=== PATIENT | male | born 1995 | race Two or more races ===

== ENCOUNTER 2017-02-19 13:51 | Outpatient (RCR) ==
--- NOTE | 2017-02-20 15:28 | RS.OPPTEV2 ---
Date of Note: 02/19/17 Visit #: 1 Date of Evaluation: 02/19/17 Payer Source: Insurance Date of Onset/Injury/Change in Status: 12/20/16 Surgery Performed?: No Treatment Diagnosis: L biceps tendonitisu, possible rotator cuff tendonitis History of Condition/Mechanism of Injury:: pt reports pain began while lifting weights. Prior Level of Function.....Patient was independent with: ADL's, Self Care, Work /Vocation, Ambulation/Mobility, Community Integration/Access Functional Limitations: Lifting, Carrying Current Subjective/complaints:: pt states he has not been working out in the last 3 weeks due to pain in the L shld. Treatment Side (optional): Left *Precautions: n/a Medical History Medical History: Unremarkable Smoking Status: Never smoker Diagnostic Testing/Imaging:: none Hx Home Medications: none Patient's Goals: to be able to return to working out and lifting. Pain Assessment - Pain Description Pain Location: L shld Pain Description: Burning, Sharp Current Pain Intensity: 1 Worst Pain Intensity: 3/10 Functional Outcome Measure UE Functional Index: 77 (4%) - G Codes & Severity Modifier G Codes & Modifier: n/a Source of G Code score: n/a Observation - Observation Posture: Forward Head Handedness: Right Gait - Gait Pattern General Gait Pattern Observation: No Deviations/Normal General Range of Motion: WFL's with pain L shld otherwise WFL's BLE and UE Muscle Strength: BLE 5/5, RUE 5/5. LUE shld flex/ext, abd 4+/5 Shoulder ROM: Right WFL's Shoulder Muscle Strength: Right WFL's - Left Shoulder ROM Left Shoulder ROM Limitations: Pain Comments: L shld flex/ext, L shld abd WFL's with pain. Increased pain with flex , abd, as well as external rotation with pain over biceps tendon and acromion - Left Shoulder Strength Left Shoulder Flexion: 4+ Good + Left Shoulder Extension: 4+ Good + Left Shoulder Abduction: 4+ Good + Left Shoulder Adduction: 5 Normal Left Shoulder External Rotation: 4 Good Left Shoulder Internal Rotation: 4+ Good + - Special Tests Shoulder Empty Can (Supraspinatus) Test: Positive Left Shoulder Drop Arm Test: Negative Left Shoulder Apley's Scratch Test: Negative Left Palpation Palpation Findings: Tenderness Comments:: tenderness over biceps tendon as well as acromion process. Sensation - Sensation Right Upper Extremity: Intact/Normal Left Upper Extremity: Intact/Normal Right Lower Extremity: Intact/Normal Left Lower Extremity: Intact/Normal Balance - Sitting Balance Static Sitting Balance: Normal Dynamic Sitting Balance: Normal - Standing Balance Static Standing Balance: Normal Dynamic Standing Balance: Normal - Treatment Modality: Ultrasound Parameters/Method Applied: 1.5w/cm2 x 7 mins Treatment Area: L proximal biceps tendon and anterior shld Patient Position: Sitting Interventions - Exercise/Activities/Manual Therapy Exercises/Activities: pt performed corner stretches, wall slides, scapular retraction Manual Therapy: n/a HOME EXERCISE PROGRAM: pt given written HEP including corner stretches in 3 positions, wall slides, scapular retraction with blue tband - Charges Total Direct Minutes: 54 Total Treatment Time: 54 Procedures billed for this date of service:: robyn johnson, ultrasound Assessment Assessment: pt presents with pain in L shld increases with shld flex, abd, and external rotation. pt presents with possible impingement and biceps tendonitis. Patient Education: Education of diagnosis, Home Exercise Program, Activity Modification, Education of Plan of Care Rehab Potential: Good Short Term Goals Goal #1: pt not report increased pain with activity Goal to be met by: 02/27/17 Goal #2: pt demonstrate full ROM without increased pain. Goal to be met by: 02/27/17 Detention Goals Goal #1: pt independent with HEP Goal to be met by: 03/13/17 Goal #2: pt demonstrate full ROM L shld without pain. Goal to be met by: 03/13/17 Goal #3: pt strength L shld 5/5 Goal to be met by: 03/13/17 Goal #4: pt able to return to prior activities such as exercising Goal to be met by: 03/13/17 Plan - Treatment to be Provided Procedures: Therapeutic Exercises, Therapeutic Activity, Neuromuscular Rehab, Manual Therapy, Patient Education Modalities: Electrical Stimulation, Ultrasound/Phonophoresis, Class IV Laser, Cryotherapy, Hot Packs - Treatment Plan Frequency: 2 X week Duration: 3 weeks ORDER # VISITS AND/OR THROUGH DATE: 03/13/17 - Treatment Code (1) Pain in joint, shoulder region Code(s): M25.519 - PAIN IN UNSPECIFIED SHOULDER Qualifiers: Laterality: left Qualified Code(s): M25.512 - Pain in left shoulder (2) Biceps tendonitis on left Code(s): M75.22 - BICIPITAL TENDINITIS, LEFT SHOULDER
== END 2017-03-01 ==
PROVIDERS: ATTEND Family Medicine Sports Medicine
DX: M25.512 Pain in left shoulder (principal); M75.22 Bicipital tendinitis, left shoulder

== ENCOUNTER 2017-10-09 09:09 | Outpatient (CLI) ==
[2017-10-09 10:40] VITALS: BMI 20.9
== END 2017-10-09 09:10 | disposition home or self-care (01) ==
LOC: DIETCN 09:09
PROVIDERS: ATTEND Family Medicine
DX: R63.4 Abnormal weight loss (principal); F20.9 Schizophrenia, unspecified